=== PATIENT | female | born 1990 | race Caucasian/White ===

== ENCOUNTER 2016-12-15 14:19 | Emergency (ER) | payer OTHER ==
[2016-12-15 14:35] VITALS: BP 122/72
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
--- NOTE | 2016-12-15 15:23 | RAD ---
INDICATION: Chest pain COMPARISON: None TECHNIQUE: PA and lateral dual-energy views were obtained. FINDINGS: Bones/Soft Tissues: There are no acute bony findings. Cardiomediastinal: The cardiomediastinal silhouette is normal. Lungs: There are no infiltrates. Pleura: There are no pleural effusions. Other: None IMPRESSION: NORMAL CHEST
== END 2016-12-15 15:34 | disposition home or self-care (01) ==
LOC: UCEAST 14:19
DX: R07.89 Other chest pain (principal); F41.9 Anxiety disorder, unspecified; F12.90 Cannabis use, unspecified, uncomplicated; Z87.891 Personal history of nicotine dependence
CPT/HCPCS: 71020; 93005; 99212; G0463

== ENCOUNTER 2017-04-23 09:27 | Emergency (ER) | payer OTHER ==
[2017-04-23 09:55] VITALS: BP 109/69
--- NOTE | 2017-04-23 10:41 | UC ---
I, Alberto,Nena, scribed for Alina Ruano MD on 04/23/17 at 1029 . Abdominal Pain Female HPI - HPI Summary HPI Summary: This 27 y/o female presents to [facility] for intermittent RLQ abd pain since 4 days ago. Pain is described as aching. Full bladder and movement make the pain worse. Pain is relieved after urinary void but denies dysuria, hematuria. States feels different than previous UTIs. Pt denies vaginal discharge, itching odor. Positive nausea and mild constipation. Pt has small BM this am without change in discomfort. Pt denies diarrhea. No h./o similar pain. Pt has not taken analgesia, but does smokes THC daily with improvement of pain. Pt with h/ o STDs. Pt in monogamous relationship. No h/o similar, no h/o ovarian cyst. Pt ate a small breakfast this morning, but reports poor appetite. PMHx includes recurrent UTI with last bout 1 year ago. She reports that her control is currently off schedule due to missed two doses before placebo. New pack has been started about a week ago. She has been sexually active during 10 days of non-BC period. Pt is currently on control, zyrtec, and azelastine nasal spray. Pt is daily MJ user and daily drinker. Pt works as warehouse administrative assistant. Med list is reviewed and confirmed with pt. Vital signs reviewed. - History of Current Complaint Chief Complaint: UCAbdominalPain Stated Complaint: LOWER ABD PAIN Time Seen by Provider: 04/23/17 09:57 Hx Obtained From: Patient Hx Last Menstrual Period: 04/02/17 Onset/Duration: Lasting Days, Still Present Timing: Intermittent Episodes Lasting: Pain Intensity: 6 Pain Scale Used: 0-10 Numeric Location: Discrete At: RLQ Radiates: No Character: Aching Aggravating Factor(s): Movement, Other: - start voiding Alleviating Factor(s): Other: - voiding Associated Signs and Symptoms: Positive: Constipation, Nausea. Negative: Fever , Vaginal Bleeding, Vaginal Discharge, Vomiting Allergies/Adverse Reactions: Allergies Allergy/AdvReac Type Severity Reaction Status Date / Time No Known Allergies Allergy Verified 04/23/17 09:43 Home Medications: Home Medications Azelastine/Fluticasone TAMIA(NF [Dymista(NF)] 1 spray BOTH NARES 04/23/17 [History ] Cetirizine* [ZyrTEC 10 MG TAB*] 04/23/17 [History Confirmed 04/23/17] PMH/Surg Hx/FS Hx/Imm Hx Previously Healthy: Yes GI/ History: Other Other GI/ History: Recurrent UTI - Surgical History Surgical History: Yes Surgery Procedure, Year, and Place: wisdom teeth - Family History Known Family History: Positive: Cardiac Disease - grand parents x 2, Hypertension Negative: Diabetes - Social History Occupation: Employed Full-time Lives: With Family Alcohol Use: Daily Alcohol Amount: 2-3 drinks a day, beer or liquor Substance Use Type: Marijuana - daily Substance Use Comment - Amount & Last Used: frequently Smoking Status (MU): Former Smoker When Did the Patient Quit Smoking/Using Tobacco: 1 year ago Review of Systems Constitutional: Other - decreased appetite Skin: Negative Eyes: Negative ENT: Negative Respiratory: Negative Cardiovascular: Negative Gastrointestinal: Abdominal Pain, Other - nausea Genitourinary: Negative Motor: Negative Neurovascular: Negative Musculoskeletal: Negative Neurological: Negative Psychological: Negative All Other Systems Reviewed And Are Negative: Yes Physical Exam Triage Information Reviewed: Yes Appearance: Well-Appearing, No Pain Distress, Well-Nourished Vital Signs: Initial Vital Signs Temp 99.3 F 04/23/17 09:45 Pulse 68 04/23/17 09:45 Resp 18 04/23/17 09:45 BP 109/69 04/23/17 09:45 Pulse Ox 98 04/23/17 09:45 Vital Signs Reviewed: Yes Eye Exam: Normal ENT: Positive: Hearing grossly normal Neck exam: Normal Neck: Positive: Supple, Nontender, No Lymphadenopathy Respiratory Exam: Normal Respiratory: Positive: Chest non-tender, Normal breath sounds. Negative: Wheezing Cardiovascular Exam: Normal Cardiovascular: Positive: RRR, No Murmur Abdomen Description: Negative: Nontender - abd soft +BS + TTP RLQ McBurney's point No suprapubic pain Neg Rosving's no distension Bowel Sounds: Positive: Hypoactive Musculoskeletal Exam: Normal Neurological Exam: Normal Psychological Exam: Normal Skin Exam: Normal Abd Pain Female Course/Dx - Course Course Of Treatment: Pt with progressie RLQ x 4 days. Pt with increased pain with bladder distension. VSS. Pt with neg urinalysis, neg urine . Differential includes ovarian cyst (pain more superior than anticipated) contsipation (not releaved by BM this am, no sense of constipation, Appendicitis. I offered pt pelvic exam - declined at - aware will likely require at hospital. recommend transfer to ED for further eval with labs and imaging. Pt in agreement with plan. fiancee to drive. Spoke with Dr. Murillo - accepting in transfer - Differential Dx/Diagnosis Provider Diagnoses: RLQ pain - Physician Notification/Consults Discussed Care of Patient With: Oneil Murillo Time Discussed With Above Provider: 10:30 Instructed by Provider To: Transfer Discharge - Discharge Plan Condition: Stable Disposition: HOME Patient Education Materials: Abdominal Pain (ED) Referrals: Marie Garcia MD [Primary Care Provider] - Additional Instructions: - Go directly to the emergency department - they are expecting you - Do not eat or drink anything until you are seen and further evaluated - If your pain becomes severe or you have any other concerns, assembler for puller over hand and call 911 The documentation as recorded by the Alberto angeles Soohyun accurately reflects the service I personally performed and the decisions made by me, Alina Ruano MD.
== END 2017-04-23 10:40 | disposition home or self-care (01) ==
LOC: UCEAST 09:27
DX: R10.31 Right lower quadrant pain (principal); F12.10 Cannabis abuse, uncomplicated; Z87.891 Personal history of nicotine dependence
CPT/HCPCS: 81003; 84702; 99202; G0463

== ENCOUNTER 2017-12-18 16:46 | Emergency (ER) | payer BC, OTHER ==
[2017-12-18 16:56] VITALS: BP 115/81
--- NOTE | 2017-12-18 18:02 | UC ---
Throat Pain/Nasal Mandeep HPI - HPI Summary HPI Summary: Patient presents with complaints of throat pain, x 2 days. She states three co- workers have strep throat. She is scheduled to go on a business trip tomorrow and she is worried her throat pain will get worse. She is able to eat, drink, and handle her own secretions. She denies fever, chills, nausea, vomiting. - History of Current Complaint Hx Obtained From: Patient Hx Last Menstrual Period: 11/20/17 Onset/Duration: Gradual Onset, Lasting Days Severity: Mild Pain Intensity: 2 Cough: Nonproductive Associated Signs & Symptoms: Positive: Negative - Epiglottits Risk Factors Epiglottis Risk Factors: Negative <Luz Reynoso - Last Filed: 12/18/17 17:57> <Alina Ruano - Last Filed: 12/18/17 18:39> - History of Current Complaint Chief Complaint: UCGeneralIllness Stated Complaint: SORE THROAT Time Seen by Provider: 12/18/17 17:48 - Allergies/Home Medications Allergies/Adverse Reactions: Allergies Allergy/AdvReac Type Severity Reaction Status Date / Time No Known Allergies Allergy Verified 04/23/17 11:22 PMH/Surg Hx/FS Hx/Imm Hx Previously Healthy: Yes - Surgical History Surgical History: Yes Surgery Procedure, Year, and Place: wisdom teeth - Family History Known Family History: Positive: Cardiac Disease - grand parents x 2, Hypertension Negative: Diabetes - Social History Occupation: Employed Full-time Lives: Alone Alcohol Use: Daily Alcohol Amount: 2-3 drinks a day, beer or liquor Substance Use Type: Marijuana Substance Use Comment - Amount & Last Used: frequently Smoking Status (MU): Former Smoker When Did the Patient Quit Smoking/Using Tobacco: 1 year ago <Luz Reynoso - Last Filed: 12/18/17 17:57> Review of Systems Constitutional: Negative Skin: Negative Eyes: Negative ENT: Sore Throat Respiratory: Negative Cardiovascular: Negative Gastrointestinal: Negative Genitourinary: Negative Motor: Negative Neurovascular: Negative Musculoskeletal: Negative Neurological: Negative Psychological: Negative Is Patient Immunocompromised?: No All Other Systems Reviewed And Are Negative: Yes <Luz Reynoso - Last Filed: 12/18/17 17:57> Physical Exam Triage Information Reviewed: Yes Appearance: Well-Appearing Vital Signs: Initial Vital Signs Temp 98.9 F 12/18/17 16:52 Pulse 68 12/18/17 16:52 Resp 16 12/18/17 16:52 BP 115/81 12/18/17 16:52 Pulse Ox 100 12/18/17 16:52 Vital Signs Reviewed: Yes Eye Exam: Normal ENT: Positive: Pharyngeal erythema Neck exam: Normal Neck: Positive: 1 Respiratory Exam: Normal Cardiovascular Exam: Normal Skin Exam: Normal <Luz Reynoso - Last Filed: 12/18/17 17:57> Vital Signs: Initial Vital Signs Temp 98.9 F 12/18/17 16:52 Pulse 68 12/18/17 16:52 Resp 16 12/18/17 16:52 BP 115/81 12/18/17 16:52 Pulse Ox 100 12/18/17 16:52 <Alina Ruano - Last Filed: 12/18/17 18:39> Throat Pain/Nasal Course/Dx - Course Course Of Treatment: Patient presents with throat pain, and exposure to strep at work. She is scheduled to go away tomorrow for work trip and is worried she will get worse and wont have any medicine. She was told today that she does not have strep and she should not take the antibiotic at this time as it will not make her get better as sooner. She states she will not take the medication unless her symtpoms get significantly worse. - Differential Dx/Diagnosis Differential Diagnosis/HQI/PQRI: Pharyngitis Provider Diagnoses: pharyngitis <Luz Reynoso - Last Filed: 12/18/17 17:57> Discharge <Luz Reynoso - Last Filed: 12/18/17 17:57> <Alina Ruano - Last Filed: 12/18/17 18:39> - Discharge Plan Condition: Stable Disposition: HOME Prescriptions: Penicillin VK TAB* [Penicillin VK 250 mg Tab*] 500 mg PO QID #40 tab Patient Education Materials: Pharyngitis (ED) Referrals: Marie Garcia MD [Primary Care Provider] - Additional Instructions: As discussed with the patient she was negative for strep throat at this time. However she states three of her co-workers have strep and she is scheduled to go on a business trip tomorrow and is worried she is going to become more ill. I have sent RX for her to take with her, but she agrees to wait 48 hours and if she gets better she will not need to take this medication. Attestation Statement User Type: Provider - I was available for consult. This patient was seen by the JEFFERY. The patient was not presented to, seen by, or examined by me. -Isabelle <Alina Ruano - Last Filed: 12/18/17 18:39>
== END 2017-12-18 18:10 | disposition home or self-care (01) ==
LOC: UCEAST 16:46
DX: J02.9 Acute pharyngitis, unspecified (principal); F12.90 Cannabis use, unspecified, uncomplicated; Z87.891 Personal history of nicotine dependence
CPT/HCPCS: 87651; 99212; G0463

== ENCOUNTER 2018-05-17 07:53 | Emergency (ER) | payer BC ==
[2018-05-17 08:19] VITALS: BP 118/68
--- NOTE | 2018-05-17 10:16 | UC ---
Tami Vigil Gabriel, scribed for Boy Hall MD on 05/17/18 at 0837 . General HPI - HPI Summary HPI Summary: This patient is a 28 year old F presenting to [facility] [place] with a chief complaint of neck/lower back pain. On 05-12-18 the patient began having nausea and a headache. She describes the headache as a dull wide spread headache with occasional sharp shooting pain that will last a few seconds. Her back pain has interrupted her sleep, she has taken NSAIDs with no relief. The patient rates the pain 7/10 in severity. Patient reports low grade fever, intermittent pain in LLQ, and blood with bowel movements. Pt gets sinus infections often and has some baseline sinus tenderness. She has multiple environmental allergies. Patient denies rhinorrhea, LE edema, cough, chest congestion, and sore throat. Pt only has 1 BM per week and has hx of constipation. She states her constipation is worse than usual and she has been having some blood with wiping mostly. There is no blood on the stool but it is in the toilet. BM's are painful. Last night the pt had a short episode of chills and myalgia. Pt hikes often but denies rash and tick exposure. The pt was encouraged to go to the ED for a proper work up. - History of Current Complaint Chief Complaint: UCGeneralIllness Stated Complaint: HEADACHE BACK PAIN NAUSEA RECTAL BLEEDING Time Seen by Provider: 05/17/18 08:01 Hx Obtained From: Patient Hx Last Menstrual Period: 05/08/18 Onset/Duration: Lasting Days, Still Present Timing: Intermittent Episodes Lasting: Onset Severity: Moderate Current Severity: Moderate Pain Intensity: 7 Associated Signs & Symptoms: Positive: Other - ABD pain, blood with BM, GARCIA, neck pain, back pain, - Allergy/Home Medications Allergies/Adverse Reactions: Allergies Allergy/AdvReac Type Severity Reaction Status Date / Time No Known Allergies Allergy Verified 05/17/18 08:04 Home Medications: Home Medications Acetaminophen [Acetaminophen Extra Strength] 1,000 mg PO ONCE 05/17/18 [History Confirmed 05/17/18] Fexofenadine/Pseudoephedrine [Sunshine-D 24 Hour Tablet] 1 each PO DAILY [History Confirmed 05/17/18] Multivitamin [Multivitamins] 1 cap PO DAILY 05/17/18 [History Confirmed 05/17/18 ] PMH/Surg Hx/FS Hx/Imm Hx - Additional Past Medical History Additional PMH: scoliosis Respiratory History: Other Other Respiratory History: seasonal allergies GI/ History: Other Other GI/ History: PCOS Other History Of: Negative For: Anticoagulant Therapy - Surgical History Surgical History: Yes Surgery Procedure, Year, and Place: wisdom teeth - Family History Known Family History: Positive: Cardiac Disease - grand parents x 2, Hypertension Negative: Diabetes - Social History Lives: With Family Alcohol Use: Daily Alcohol Amount: 2-3 drinks a day, beer Substance Use Type: Marijuana Substance Use Comment - Amount & Last Used: daily Smoking Status (MU): Former Smoker When Did the Patient Quit Smoking/Using Tobacco: 1 year ago Review of Systems Constitutional: Fever, Chills ENT: Sinus Pain/Tenderness Gastrointestinal: Abdominal Pain, Nausea, Other - blood with BM and pain with BM Musculoskeletal: Myalgia, Other: - back pain Neurological: Headache All Other Systems Reviewed And Are Negative: Yes Physical Exam - Summary Physical Exam Summary: General: well-appearing, no pain distress Skin: warm, color reflects adequate perfusion, dry Head: normal Eyes: EOMI, GERARDO ENT: normal Neck: supple, nontender Respiratory: CTA, breath sounds present Cardiovascular: RRR Abdomen: soft, nontender Bowel: present Musculoskeletal: normal, strength/ROM intact Neurological: sensory/motor intact, A&O x3 Psychological: affect/mood appropriate Triage Information Reviewed: Yes Vital Signs: Initial Vital Signs Temp 98.9 F 05/17/18 08:07 Pulse 83 05/17/18 08:07 Resp 16 05/17/18 08:07 BP 118/68 05/17/18 08:07 Pulse Ox 100 05/17/18 08:07 Vital Signs Reviewed: Yes Course/Dx - Course Course Of Treatment: Medications reviewed. Allergies noted. DISCUSSED NEED FOR LABS AND OTHER EVALUATION WHICH IS NOT AVAILABLE HERE IN CLINIC AND RECOMMENDED EVALUATION IN ED NOW. - Differential Dx - Multi-Symptom Provider Diagnoses: HEADACHE. BACK PAIN. FEVER. BLOOD IN STOOL Discharge - Sign-Out/Discharge Documenting (check all that apply): Discharge/Admit/Transfer - Discharge Plan Condition: Stable Disposition: HOME Patient Education Materials: Gastrointestinal Bleeding (ED), Fever in Adults ( ED), Acute Headache (ED), Back Pain (ED) Referrals: Marie Garcia MD [Primary Care Provider] - Additional Instructions: GO DIRECTLY TO THE EMERGENCY DEPARTMENT FOR FURTHER EVALUATION OF YOUR HEADACHE , FEVER, NECK AND BACK PAIN, ABDOMINAL PAIN, AND BLOOD IN YOUR STOOL. - Billing Disposition and Condition Condition: STABLE Disposition: Home The documentation as recorded by the Tami angeles Gabriel accurately reflects the service I personally performed and the decisions made by me, Boy Hall MD.
== END 2018-05-17 09:02 | disposition home or self-care (01) ==
LOC: UCEAST 07:53
DX: R51 Headache (principal); M54.5 Low back pain; R50.9 Fever, unspecified; K92.1 Melena
CPT/HCPCS: 99212; G0463

== ENCOUNTER 2018-05-18 15:43 | Emergency (ER) | payer BC ==
[2018-05-18] MEDS ORDERED: Ketorolac INJ* 30 MG/ML 1 ML VIAL IV ONE (16:09)
[2018-05-18] MEDS ORDERED: Ondansetron ODT TAB* 4 MG PO ONE (16:09)
[2018-05-18] MEDS ORDERED: NS 0.9% 1000 ML* 2,000 ML IV ONE (16:09)
[2018-05-18 16:46] LABS: ABS Basophils 0 10^3/ul (0-0.2); ABS Eosinophils 0 10^3/ul (0-0.6); ABS Lymphocytes 1.1 10^3/ul (1.0-4.8); ABS Monocytes 0.6 10^3/ul (0-0.8); ABS Neutrophils 1.9 10^3/ul (1.5-7.7); ABS Nucleated RBC 0 10^3/ul; Eosinophil % 0.5 % (0-6); Hematocrit 33 % (35-47); Hemoglobin 11.4 g/dl (12.0-16.0); Lymphocyte % 29.5 % (25-47); Mean Corpuscular HGB Conc 35 g/dl (31-36); Mean Corpuscular Hemoglobin 31 pg (27-31); Mean Corpuscular Volume 90 fL (80-97); Mean Platelet Volume 7.3 um3 (7.4-10.4); Nucleated Red Blood Cells % 0.2; Platelet Count 140 10^3/ul (150-450); Red Blood Count 3.65 10^6/ul (4.00-5.40); Red Cell Distribution Width 13 % (10.5-15); White Blood Count 3.6 10^3/ul (3.5-10.8)
[2018-05-18 16:55] LABS: INR 0.9 (0.77-1.02)
--- NOTE | 2018-05-18 16:59 | RAD ---
Indication: Headaches. CT of the brain was performed without IV contrast. Ventricular structures are midline. No midline shift is noted. The extra-axial spaces are unremarkable. There is no evidence of intracranial mass or hemorrhage. No other high or low density lesions are identified. Mastoid air cells and paranasal sinuses are unremarkable. IMPRESSION: No intracranial mass or hemorrhage is noted.
--- NOTE | 2018-05-18 17:02 | RAD ---
Indication: Headaches. Neck pain. CT of the cervical spine was obtained in the axial plane. Sagittal and coronal reconstructed images were obtained. The skull base demonstrates mastoid air cells to be well aerated. No fracture is noted. The vertebral bodies appear normal in height. There is straightening of the normal lordosis. Disc spaces show no evidence of any disc protrusion. No fracture is identified. The lung apices are unremarkable. IMPRESSION: No fracture of the cervical spine is noted. Straightening of the normal lordosis.
--- NOTE | 2018-05-18 17:08 | RAD ---
Indication: Abdominal pain. Flat and upright views of the abdomen demonstrates no free air. No dilated loops of bowel. Present. No organomegaly is noted. Bowel gas pattern is otherwise unremarkable. IMPRESSION: No free air or obstruction is noted.
[2018-05-18 17:11] LABS: EGFR Non-African American 96.7 (>60)
[2018-05-18 17:29] LABS: Urine Appearance Clear; Urine Blood Negative (Negative); Urine Color Colorless; Urine Ketones Negative (Negative); Urine Protein Negative (Negative); Urine Specific Gravity 1.001 (1.010-1.030); Urine Urobilinogen Negative (Negative)
[2018-05-18] MEDS ORDERED: Ibuprofen TAB* 600 MG PO ONE (17:52)
--- NOTE | 2018-05-18 18:21 | ED ---
Mando Vigil Tariq, scribed for Boy Hall MD on 05/18/18 at 1622 . Complex/Multi-Sys Presentation - HPI Summary HPI Summary: A 28 y/o female presents to ED c/o headache, neck pain/stiffness, back pain and rectal bleeding. Currently, she had no abdominal pain. According to the pt, during active movement such as bending over and standing, she gets lightheaded and has sudden headaches. The throbbing headaches (base of skull and sinus pressure in front/behind eyes) and stiff neck pain (7-8/10) started approximately 1 week ago, rectal bleeding started 2-3 weeks ago. She stated that she constantly feels constipated and she has painful stools. She characterizes it as, "feels like it is cutting my insides". As for the back pain , it is in the middle and radiates all the way up her spine to her neck and base of skull. She also notes she has diffuse abdominal pain/cramps especially when she is hungry. She describes the intermittent abdominal pain as, "much more than hunger pain, it is much more intense", however it is alleviated if she eats something. Pt denies sore throat, cough and chest congestion, however has had intermittent fever and chills lately and feels slightly dehydrated. Movement of head aggravates the neck pain. Pt took Tylenol, Aleve, Sudafed and Acetaminophen over the course of a week, however it does not alleviate pain, but slightly the headaches. - History Of Current Complaint Chief Complaint: EDGeneral Time Seen by Provider: 05/18/18 15:49 Hx Obtained From: Patient Onset/Duration: Sudden Onset, Lasting Weeks, Still Present Timing: Constant - Back pain, neck pain, Intermittent, Lasting: - abdominal pain Location: Radiates To: - Diffuse abdominal pain, back pain, neck pain Character: Throbbing - Headache Aggravating Factor(s): Movement Alleviating Factor(s): Eating helps with abdominal pain Associated Signs And Symptoms: Positive: Headache, Abdominal Pain, Back Pain, Melena, Fever - Allergies/Home Medications Allergies/Adverse Reactions: Allergies Allergy/AdvReac Type Severity Reaction Status Date / Time No Known Allergies Allergy Verified 05/18/18 15:48 PMH/Surg Hx/FS Hx/Imm Hx Endocrine/Hematology History: Denies: Hx Anticoagulant Therapy, Hx Diabetes, Hx Thyroid Disease Cardiovascular History: Denies: Hx Hypertension Respiratory History: Denies: Hx Asthma, Hx Chronic Obstructive Pulmonary Disease (COPD) GI History: Denies: Hx Ulcer History: Denies: Hx Renal Disease - Surgical History Surgery Procedure, Year, and Place: wisdom teeth Infectious Disease History: No Infectious Disease History: Denies: Hx Hepatitis, Hx Human Immunodeficiency Virus (HIV), History Other Infectious Disease, Traveled Outside the [place] in Last 30 Days - Family History Known Family History: Positive: Cardiac Disease - grand parents x 2, Hypertension Negative: Diabetes - Social History Alcohol Use: Daily Alcohol Amount: 2-3 drinks a day, beer Substance Use Type: Reports: Marijuana Substance Use Comment - Amount & Last Used: daily Smoking Status (MU): Former Smoker Review of Systems Positive: Fever - Intermittent Negative: Sore Throat Positive: Other - NEGATIVE: Congestion. Negative: Cough Positive: Abdominal Pain - Intermittent, Other - POSITIVE: Rectal bleeding, constipation Positive: Other - POSITIVE: Neck pain/stiffness, back pain Neurological: Other - POSITIVE: Lightheadedness Positive: Headache - Throbbing All Other Systems Reviewed And Are Negative: Yes Physical Exam - Summary Physical Exam Summary: General:well-appearing, no pain distress Skin:warm, color reflects adequate perfusion, dry Head:normal Eyes:EOMI, GERARDO ENT:normal Neck:supple, nontender Respiratory:CTA, breath sounds present Cardiovascular:RRR Abdomen:soft, nontender Bowel:present Musculoskeletal:Mild tenderness of midline neck Neurological:sensory/motor intact, A&O x3 Psychological:affect/mood appropriate GCS: 15 Triage Information Reviewed: Yes Vital Signs On Initial Exam: Initial Vitals Temp Pulse Resp BP Pulse Ox 99.1 F 82 14 116/77 98 05/18/18 15:43 05/18/18 15:43 05/18/18 15:43 05/18/18 15:43 05/18/18 15:43 Vital Signs Reviewed: Yes Diagnostics - Vital Signs Vital Signs Temp Pulse Resp BP Pulse Ox 05/18/18 15:43 99.1 F 82 14 116/77 98 - Laboratory Lab Results: Lab Results 05/18/18 05/18/18 05/18/18 Range/Units 16:35 16:35 16:35 WBC 3.6 (3.5-10.8) 10^3/ul RBC 3.65 L (4.00-5.40) 10^6/ul Hgb 11.4 L (12.0-16.0) g/dl Hct 33 L (35-47) % MCV 90 (80-97) fL MCH 31 (27-31) pg MCHC 35 (31-36) g/dl RDW 13 (10.5-15) % Plt Count 140 L (150-450) 10^3/ul MPV 7.3 L (7.4-10.4) um3 Neut % (Auto) 52.8 (38-83) % Lymph % (Auto) 29.5 (25-47) % [place] % (Auto) 16.6 H (0-7) % Eos % (Auto) 0.5 (0-6) % Baso % (Auto) 0.6 (0-2) % Absolute Neuts (auto) 1.9 (1.5-7.7) 10^3/ul Absolute Lymphs (auto) 1.1 (1.0-4.8) 10^3/ul Absolute Monos (auto) 0.6 (0-0.8) 10^3/ul Absolute Eos (auto) 0 (0-0.6) 10^3/ul Absolute Basos (auto) 0 (0-0.2) 10^3/ul Absolute Nucleated RBC 0 10^3/ul Nucleated RBC % 0.2 INR (Anticoag Therapy) 0.90 (0.77-1.02) APTT 26.0 (26.0-36.3) seconds Sodium 135 (135-145) mmol/L Potassium 4.3 (3.5-5.0) mmol/L Chloride 103 (101-111) mmol/L Carbon Dioxide 25 (22-32) mmol/L Anion Gap 7 (2-11) mmol/L BUN 7 (6-24) mg/dL Creatinine 0.71 (0.51-0.95) mg/dL Est GFR ( Amer) 117.0 (>60) Est GFR (Non-Af Amer) 96.7 (>60) BUN/Creatinine Ratio 9.9 (8-20) Glucose 84 (70-100) mg/dL Lactic Acid (0.5-2.0) mmol/L Calcium 9.7 (8.6-10.3) mg/dL Total Bilirubin 0.40 (0.2-1.0) mg/dL AST 32 (13-39) U/L ALT 39 (7-52) U/L Alkaline Phosphatase 50 (34-104) U/L C-Reactive Protein 17.88 H (<8.01) mg/L Total Protein 7.0 (6.4-8.9) g/dL Albumin 3.9 (3.2-5.2) g/dL Globulin 3.1 (2-4) g/dL Albumin/Globulin Ratio 1.3 (1-3) Lipase 24 (11.0-82.0) U/L Beta HCG, Quant < 0.60 mIU/mL Urine Color Urine Appearance Urine pH (5-9) Ur Specific [place] (1.010-1.030) Urine Protein (Negative) Urine Ketones (Negative) Urine Blood (Negative) Urine Nitrate (Negative) Urine Bilirubin (Negative) Urine Urobilinogen (Negative) Ur Leukocyte Esterase (Negative) Urine Glucose (Negative) 05/18/18 05/18/18 Range/Units 16:35 17:13 WBC (3.5-10.8) 10^3/ul RBC (4.00-5.40) 10^6/ul Hgb (12.0-16.0) g/dl Hct (35-47) % MCV (80-97) fL MCH (27-31) pg MCHC (31-36) g/dl RDW (10.5-15) % Plt Count (150-450) 10^3/ul MPV (7.4-10.4) um3 Neut % (Auto) (38-83) % Lymph % (Auto) (25-47) % [place] % (Auto) (0-7) % Eos % (Auto) (0-6) % Baso % (Auto) (0-2) % Absolute Neuts (auto) (1.5-7.7) 10^3/ul Absolute Lymphs (auto) (1.0-4.8) 10^3/ul Absolute Monos (auto) (0-0.8) 10^3/ul Absolute Eos (auto) (0-0.6) 10^3/ul Absolute Basos (auto) (0-0.2) 10^3/ul Absolute Nucleated RBC 10^3/ul Nucleated RBC % INR (Anticoag Therapy) (0.77-1.02) APTT (26.0-36.3) seconds Sodium (135-145) mmol/L Potassium (3.5-5.0) mmol/L Chloride (101-111) mmol/L Carbon Dioxide (22-32) mmol/L Anion Gap (2-11) mmol/L BUN (6-24) mg/dL Creatinine (0.51-0.95) mg/dL Est GFR ( Amer) (>60) Est GFR (Non-Af Amer) (>60) BUN/Creatinine Ratio (8-20) Glucose (70-100) mg/dL Lactic Acid 0.5 (0.5-2.0) mmol/L Calcium (8.6-10.3) mg/dL Total Bilirubin (0.2-1.0) mg/dL AST (13-39) U/L ALT (7-52) U/L Alkaline Phosphatase (34-104) U/L C-Reactive Protein (<8.01) mg/L Total Protein (6.4-8.9) g/dL Albumin (3.2-5.2) g/dL Globulin (2-4) g/dL Albumin/Globulin Ratio (1-3) Lipase (11.0-82.0) U/L Beta HCG, Quant mIU/mL Urine Color Colorless Urine Appearance Clear Urine pH 7.0 (5-9) Ur Specific [place] 1.001 L (1.010-1.030) Urine Protein Negative (Negative) Urine Ketones Negative (Negative) Urine Blood Negative (Negative) Urine Nitrate Negative (Negative) Urine Bilirubin Negative (Negative) Urine Urobilinogen Negative (Negative) Ur Leukocyte Esterase Negative (Negative) Urine Glucose Negative (Negative) Result Diagrams: 05/18/18 16:35 05/18/18 16:35 Lab Statement: Any lab studies that have been ordered have been reviewed, and results considered in the medical decision making process. - Radiology ABDOMEN XR Radiology Interpretation Completed By: Radiologist - No free air or obstruction is noted. ED PHYSICIAN REVIEWED THIS RADIOLOGY REPORT. - CT CERVICAL SPINE CT CT Interpretation Completed By: Radiologist - No fracture of the cervical spine is noted. Straightening of the normal lordosis. ED PHYSICIAN REVIEWED THIS RADIOLOGY REPORT. BRAIN CT CT Interpretation Completed By: Radiologist - No intracranial mass or hemorrhage is noted. ED PHYSICIAN REVIEWED THIS RADIOLOGY REPORT. Re-Evaluation - Re-Evaluation First Eval Re-Evaluation Time: 17:40 Comment: Dicussed labs. Complex Multi-Symp Course/Dx Course Of Treatment: DISCUSSED RESULTS WITH THE PATIENT. NECK HAS FROM. WBC IS NORMAL. NO FEVER IN ED. AT THIS TIME, DOES NOT HAVE MENIGITIS. THIS AND THE SX OF MENINGITIS WAS DISCUSSED WITH THE PATIENT. NO ABD PAIN. A FEMALE PROVIDER UNDERTOOK A RECTAL EXAM; SHE DID NOT SEE AN EXTERNAL HEMORRHOID OR FISSURE OR ACTIVE BLEEDING. WE DISCUSSED AVOIDING CONSTIPATION WITH AMPLE HYDRATION. WE ALSO DISCUSSED RESTURNING TO THE ED WITH ANY WORSENING OF SX. F/U PMD; RETURN TO THE ED IF WORSE. - Diagnoses Provider Diagnoses: Headache, Neck pain, Rectal bleeding, Anal pain Discharge - Sign-Out/Discharge Documenting (check all that apply): Discharge/Admit/Transfer - Discharge Plan Condition: Stable Disposition: HOME Patient Education Materials: Rectal Bleeding (ED), Acute Headache (ED), Neck Pain (ED) Referrals: Marie Garcia MD [Primary Care Provider] - Additional Instructions: FOLLOW UP WITH YOUR DOCTOR. TAKE IBUPROFEN AND/OR ACETAMINOPHEN DIRECTED NEEDED FOR YOUR NECK PAIN AND HEADACHE. KEEP YOUR STOOLS SOFT BY DRINKING PLENTY OF WATER. YOU CAN USE OVER THE COUNTER TOPICALS SUCH PREPARATION H IF NEEDED IF HELPFUL. GET RECHECKED FOR ANY WORSENING OF YOUR CONDITION; PAIN, FEVER, SIGNS OF MENINGITIS, ABDOMINAL PAIN, FURTHER BLEEDING, YOU FEEL LIGHTHEADED OR QUESTIONS OR CONCERNS. - Billing Disposition and Condition Condition: STABLE Disposition: Home The documentation as recorded by the Mando angeles Tariq accurately reflects the service I personally performed and the decisions made by me, Boy Hall MD.
[2018-05-18 18:44] VITALS: BP 111/83
== END 2018-05-18 18:42 | disposition home or self-care (01) ==
LOC: ED 15:43
DX: R51 Headache (principal); M54.2 Cervicalgia; K62.5 Hemorrhage of anus and rectum; K62.89 Other specified diseases of anus and rectum; Z87.891 Personal history of nicotine dependence
CPT/HCPCS: 36415; 70450; 72125; 74019; 80053; 81003; 83605; 83690; 84702; 85025; 85610; 85730; 86140; 96360; 96374; 99282; A9270-GY; J1885

== ENCOUNTER 2018-11-15 07:50 | Emergency (ER) | payer BC, OTHER ==
[2018-11-15 08:02] VITALS: BP 116/67
--- NOTE | 2018-11-15 10:28 | UC ---
FLU HPI - HPI Summary HPI Summary: ONSET LAST NIGHT OF BODY ACHES, HEADACHE, SORE THROAT, PAIN WITH SWALLOWING. FEVER 100.4. NO COUGH OR CONGESTION. - History of Current Complaint Chief Complaint: UCGeneralIllness Stated Complaint: FLU LIKE SYMPTOMS Time Seen by Provider: 11/15/18 07:51 Hx Obtained From: Patient Hx Last Menstrual Period: 10/22/18 Onset/Duration: Gradual Onset, Lasting Hours, Still Present Severity Currently: Moderate Severity Initially: Moderate Pain Intensity: 2 Pain Scale Used: 0-10 Numeric Associated Signs & Symptoms: Positive: Fever, Myalgia, Sore Throat, Headache. Negative: Cough - Allergy/Home Medications Allergies/Adverse Reactions: Allergies Allergy/AdvReac Type Severity Reaction Status Date / Time environmenta Allergy Eyes Uncoded 11/15/18 08:02 Itchy/Swollen/Red/Watery Home Medications: Home Medications Naproxen Sodium [Aleve] 440 mg PO ONCE PRN 11/15/18 [History Confirmed 11/15/18] Pseudoephedrine HCl [Sudafed] 30 mg PO ONCE PRN 11/15/18 [History Confirmed ] PMH/Surg Hx/FS Hx/Imm Hx Previously Healthy: Yes Other History Of: Negative For: Anticoagulant Therapy - Surgical History Surgical History: Yes Surgery Procedure, Year, and Place: wisdom teeth - Family History Known Family History: Positive: Cardiac Disease - grand parents x 2, Hypertension Negative: Diabetes - Social History Alcohol Use: Daily Alcohol Amount: 2-3 drinks a day, beer Substance Use Type: Marijuana Substance Use Comment - Amount & Last Used: occasionally Smoking Status (MU): Former Smoker Have You Smoked in the Last Year: No When Did the Patient Quit Smoking/Using Tobacco: a year ago quit Review of Systems All Other Systems Reviewed And Are Negative: Yes Constitutional: Positive: Fever, Fatigue ENT: Positive: Sore Throat Respiratory: Positive: Negative Cardiovascular: Positive: Negative Gastrointestinal: Positive: Negative Musculoskeletal: Positive: Myalgia Neurological: Positive: Headache Physical Exam Triage Information Reviewed: Yes Appearance: Well-Appearing, No Pain Distress, Well-Nourished Vital Signs: Initial Vital Signs Temp 98.7 F 11/15/18 07:56 Pulse 89 11/15/18 07:56 Resp 18 11/15/18 07:56 BP 116/67 11/15/18 07:56 Pulse Ox 99 11/15/18 07:56 Laboratory Tests 11/15/18 11/15/18 08:11 08:13 Influenza A (Rapid) Negative Influenza B (Rapid) Negative Group A Strep Rapid Negative Vital Signs Reviewed: Yes Eyes: Positive: Conjunctiva Clear ENT: Positive: Hearing grossly normal, Pharynx normal, TMs normal Neck: Positive: Supple, Nontender, No Lymphadenopathy Respiratory Exam: Normal Cardiovascular Exam: Normal Abdomen Description: Positive: Soft Musculoskeletal: Positive: No Edema Neurological: Positive: Alert Psychological: Positive: Age Appropriate Behavior Skin: Negative: Rashes Flu Course/Dx - Differential Dx/Diagnosis Provider Diagnosis: Viral syndrome Discharge - Discharge Plan Condition: Stable Disposition: HOME Patient Education Materials: Viral Syndrome (ED) Referrals: Marie Garcia MD [Primary Care Provider] - If Needed Additional Instructions: FLU AND STREP TESTS BOTH NEGATIVE. YOUR SYMPTOMS ARE LIKELY VIRALLY MEDIATED AND SHOULD RESOLVE ON THEIR OWN WITH TIME. NO INDICATION FOR ANTIBIOTICS AT PRESENT. REST, HYDRATE, OTC MEDS NEEDED. SEEK FOLLOW-UP IF YOU ARE NOT IMPROVING OVER THE NEXT 1-2 WEEKS. - Billing Disposition and Condition Condition: STABLE Disposition: Home
== END 2018-11-15 09:03 | disposition home or self-care (01) ==
LOC: UCEAST 07:50
DX: B34.9 Viral infection, unspecified (principal); Z87.891 Personal history of nicotine dependence
CPT/HCPCS: 87651; 99211; G0463

== ENCOUNTER 2019-11-04 12:34 | Inpatient (IN) | payer BC, OTHER ==
[2019-11-04] MEDS ORDERED: Buffered Lidocaine 1% SYRIN* 1 ML/SYRINGE INTRADERM ONE (13:00)
[2019-11-04] MEDS ORDERED: Lactated Ringers 1000 ML Bag* 1,000 ML IV ONE (13:00)
[2019-11-04] MEDS ORDERED: Lactated Ringers 1000 ML Bag* 1,000 ML IV SCH ×2 (13:00→18:00)
--- NOTE | 2019-11-04 13:13 | HP ---
General Information - Reason for Visit 29yo, , IUP@40+5 here in active labor - General Information Maternal Age: 29 Grav: 1 Para: 0 SAB: 0 IEA: 0 Estimated Due Date: 10/30/19 Determined By: LMP Maternal Blood Type and Rh: O Positive - Results this Serology/RPR Result: Non-Reactive Rubella Result: Immune HBsAg Result: Negative HIV Result: Negative GBS Culture Result: Positive Past Medical History Past Medical History Comment: Anxiety - panic attacks Scoliosis Allergies - environmental Joint pain Hx Depression Past Surgical History Comment: [place] tooth extraction (2006) Family History Comment: PGM: Ovarian cancer PGF: Dementia MGM: Breast cancer, [place] MGF: heart disease - Antepartal Records Antepartal Records: Reviewed, Complicated by: - GBS+, anemia Review of Systems Constitutional: Uncomfortable CV Complaint: No Respiratory: Shortness of Breath: No Gastrointestinal: No Nausea/Vomiting, Normal Bowel Movement Genitourinary: Bleeding - +bloody show, No Dysuria, No Leaking Fluid Musculoskeletal: Back Pain, Contractions Neurological: No Headache, No Visual Changes Movement: Normal Exam Allergies/Adverse Reactions: Allergies environmenta Allergy (Uncoded 11/15/18 08:02) Eyes Itchy/Swollen/Red/Watery 122/74, HR 58, O2 98% - Measurements Pre- Weight: 130 lb - Exam Breast: Breast Exam Deferred CVA: No CVA Tenderness Extremities: No Edema Heart: Normal Rhythm/Heart Sounds HEENT: No Significant Findings Lungs: Clear Bilaterally Rectal: Rectal Exam Deferred - Abdominal Exam Abdomen Exam: Non-Tender Targeted Exam Findings Estimated Weight: 8lb Cervical Exam: 4cm Effacement: 80% Station: -1 Presenting Part: Vertex Membrane Status: Intact Bleeding/Discharge: Bloody Show EFM Findings - External Monitor Findings Baseline Heart Rate: 130 External Monitor Findings: Accelerations Present, No Pattern of Variable or Late Decelerations, Variability Moderate, Baseline Stable External Monitor Findings Comment: No evidence of metabolic acidemia Contractions: Regular, 45-90 Seconds - Coupling, 3mins Assessment/Plan - Assessment 29yo, , IUP@40+5 here in active labor GBS+, O+, RI Active labor No evidence of metabolic acidemia Regular contractions - Obstetrical Risk Factors Obstetrical Risk Factors: GBS Positive - Plan Plan: Admit - Anticipate Vaginal Delivery Plan Comment: Admit to L&D Start GBS chemoprophylaxis VE prn IV pain meds, nitrous oxide prn Anticipate progression to
[2019-11-04] MEDS ORDERED: Penicillin G Potassium IV* 5,000,000 UNITS in NS 0.9% 100 ML* 100 ML IVPB ONE (13:30)
[2019-11-04 13:50] LABS: ABS Basophils 0.1 10^3/ul (0-0.2); ABS Eosinophils 0.1 10^3/ul (0-0.6); ABS Lymphocytes 1.3 10^3/ul (1.0-4.8); ABS Monocytes 0.7 10^3/ul (0-0.8); ABS Neutrophils 8.9 10^3/ul (1.5-7.7); Eosinophil % 0.6 %; Hematocrit 32 % (35-47); Hemoglobin 10.9 g/dL (12.0-16.0); Lymphocyte % 11.9 %; Mean Corpuscular HGB Conc 34 g/dL (31-36); Mean Corpuscular Hemoglobin 32 pg (27-31); Mean Corpuscular Volume 94 fL (80-97); Mean Platelet Volume 8.9 fL (7.4-10.4); Platelet Count 148 10^3/uL (150-450); Red Cell Distribution Width 14 % (10-15); White Blood Count 11.1 10^3/uL (3.5-10.8)
[2019-11-04 15:01] LABS: Urine Benzodiazepine Screen None Detected (None Detect); Urine Opiates Screen None Detected (None Detect)
[2019-11-04] MEDS ORDERED: Witch Hazel PAD* JAR TOPICAL PRN (17:33)
[2019-11-04] MEDS ORDERED: Dibucaine 1% 28.35 GM TUBE PR PRN (17:33)
[2019-11-04] MEDS ORDERED: Glycerin ADULT SUPP PR PRN (17:33)
[2019-11-04] MEDS ORDERED: Penicillin G Potassium IV* 3,000,000 UNITS in NS 0.9% 100 ML* 100 ML IVPB SCH (18:00)
--- NOTE | 2019-11-04 19:34 | PROCNOTE ---
[facility] OB: Delivery Note - Delivery A Date of : 11/04/19 Time of : 16:36 [place] Sex: Female Weight at : 7 lb 5 oz Score 1 Minute: 9 Score 5 Minutes: 9 Gestational Age in Weeks and Days at Delivery: 40 Weeks and 5 Days Delivery Method: Spontaneous Vaginal Labor: Spontaneous Did Patient attempt ?: N/A, No Previous Amniotic Fluid: Clear Estimated Blood Loss: 300 Anesthesia/Analgesia: None Delivered By: Jordyn Hightower - Nursery Level of Nursery: Regular/Bedside - Perineum Perineal Injury: Perineal Laceration, 2nd Degree Perineal Injury Comment: right labial abrasion Perineal Repair: By Delivering Practioner - Events Delivery Events of Note: Partial Course of Antibiotics Delivery Events of Note Comment: nuchal hand at delivery, treated with pcn x 1 dose in labor. - Additional Delivery Notes Additional Delivery Notes: Delivered left occipital-anterior ([place]), nuchal arm noted. Body delivered without difficulty. Baby placed on mothers abdomen. Cord clamped and cut by myself after pulsations ceased. Placenta delivered spontaneously via alicia, appears intact, 3vc. Perineum and vagina inspected. A right labial abrasion noted - hemostatic and not repaired. A second degree perineal laceration was also noted. Laceration repaired in the usual fashion, anatomy restored, hemostatic. EBL 300mL. Mom and baby stable at time of note. Baby attempting to breastfeed.
[2019-11-04] MEDS: Ibuprofen TAB* 600 MG PO SCH (19:45)
[2019-11-04] MEDS: Docusate CAP* 100 MG PO SCH (19:45)
[2019-11-04] MEDS ORDERED: Simethicone TAB* 80 MG TAB.CHEW PO SCH (21:00)
[2019-11-04] MEDS: Acetaminophen TAB* 325 MG PO PRN (21:03)
[2019-11-05] MEDS: Ibuprofen TAB* 600 MG PO SCH ×4 (03:18→23:48)
[2019-11-05 06:00] LABS: ABS Eosinophils 0.1 10^3/ul (0-0.6); ABS Lymphocytes 1.8 10^3/ul (1.0-4.8); ABS Monocytes 1.1 10^3/ul (0-0.8); ABS Neutrophils 12.4 10^3/ul (1.5-7.7); Eosinophil % 0.4 %; Hematocrit 28 % (35-47); Hemoglobin 9.6 g/dL (12.0-16.0); Lymphocyte % 11.7 %; Mean Corpuscular HGB Conc 34 g/dL (31-36); Mean Corpuscular Hemoglobin 32 pg (27-31); Mean Corpuscular Volume 95 fL (80-97); Mean Platelet Volume 8.2 fL (7.4-10.4); Nucleated Red Blood Cells % 0.1; Platelet Count 138 10^3/uL (150-450); Red Blood Count 2.96 10^6 /uL (3.70-4.87); Red Cell Distribution Width 14 % (10-15); White Blood Count 15.4 10^3/uL (3.5-10.8)
[2019-11-05] MEDS: Docusate CAP* 100 MG PO SCH ×3 (08:08→20:05)
[2019-11-05] MEDS: Acetaminophen TAB* 325 MG PO PRN ×2 (10:42→18:09)
[2019-11-05] MEDS: Ferrous Gluconate TAB* 324 MG TAB PO SCH ×2 (14:16→20:05)
[2019-11-06] MEDS: Ibuprofen TAB* 600 MG PO SCH (07:41)
[2019-11-06] MEDS: Ferrous Gluconate TAB* 324 MG TAB PO SCH (07:45)
[2019-11-06 07:49] VITALS: BP 115/70
[2019-11-06] MEDS: Docusate CAP* 100 MG PO SCH (08:00)
--- NOTE | 2019-11-06 12:19 | PTEDU ---
Patient Name: CIERRA MARTE CIERRA MARTE selected video: Never Ever Shake a Baby to view on 11/06/2019 at 12:17:56 PM from [id number]
--- NOTE | 2019-11-06 12:31 | PTEDU ---
Patient Name: CIERRA MARTE CIERRA MARTE selected video: BBOB: Nurturing Your Gorgeous &Growing Baby by to view on 11/06/2019 at 12:30:51 PM [id number]
== END 2019-11-06 16:20 | disposition home or self-care (01) | DRG 807 ==
LOC: MCHOBOUT 12:34 → MCHOB 13:22
PROVIDERS: ADMIT Advanced Practice Midwife; ATTEND Advanced Practice Midwife
PROC: 10E0XZZ Delivery of Products of Conception, External Approach (ICD-10-PCS; principal; 2019-11-04)
PROC: 0KQM0ZZ Repair Perineum Muscle, Open Approach (ICD-10-PCS; 2019-11-04)
PROC: 4A1HXCZ Monitoring of Products of Conception, Cardiac Rate, External Approach (ICD-10-PCS; 2019-11-04)
DX: O48.0 Post-term pregnancy (principal); Z37.0 Single live birth; O99.824 Streptococcus B carrier state complicating childbirth; Z3A.40 40 weeks gestation of pregnancy; O70.1 Second degree perineal laceration during delivery; O71.89 Other specified obstetric trauma; O90.81 Anemia of the puerperium
CPT/HCPCS: 36415; 80307; 85025; 86850; 86900; 86901; A9270-GY; J2540

== ENCOUNTER 2021-12-30 06:11 | Inpatient (IN) ==
[2021-12-30] MEDS ORDERED: Buffered Lidocaine 1% SYRIN 1 ml INTRADERM ONE (06:38)
[2021-12-30 06:59] LABS: Urine Appearance Cloudy; Urine Bilirubin Negative (Negative); Urine Blood 3+ (Negative); Urine Color Yellow; Urine Glucose Negative (Negative); Urine Ketones Negative (Negative); Urine Nitrite Negative (Negative); Urine Protein 1+(30 mg/dL) (Negative); Urine Specific Gravity 1.005 (1.002-1.030); Urine Urobilinogen Negative (Negative)
[2021-12-30] MEDS ORDERED: Lactated Ringers 1000 ml BAG 1,000 ML IV SCH ×2 (07:00→09:00)
[2021-12-30 07:09] LABS: Urine Bacteria Absent (Absent); Urine Red Blood Cell 3+(>10/hpf) (Absent); Urine Squamous Epithelial Cell Present (Absent); Urine White Blood Cell 1+(6-10/hpf) (Absent)
[2021-12-30] MEDS ORDERED: Oxytocin in LR 20 UNITS/1,000 ML BAG IVPB ONE (07:14)
[2021-12-30 07:16] LABS: Urine Benzodiazepine Screen None Detected (None Detect); Urine Cannabinoids Screen None Detected (None Detect); Urine Opiates Screen None Detected (None Detect)
[2021-12-30 07:26] LABS: ABS Eosinophils 0.1 10^3/ul (0-0.6); ABS Lymphocytes 1.7 10^3/ul (1.0-4.8); ABS Neutrophils 8.7 10^3/ul (1.5-7.7); Eosinophil % 0.8 %; Hematocrit 33 % (35-47); Lymphocyte % 14.4 %; Mean Corpuscular HGB Conc 34 g/dL (31-36); Mean Corpuscular Hemoglobin 32 pg (27-31); Mean Corpuscular Volume 94 fL (80-97); Mean Platelet Volume 7.9 fL (7.4-10.4); Platelet Count 158 10^3/uL (150-450); Red Blood Count 3.45 10^6 /uL (3.70-4.87); Red Cell Distribution Width 14 % (10-15); White Blood Count 11.4 10^3/uL (3.5-10.8)
[2021-12-30] MEDS ORDERED: Penicillin G Potassium IV 5,000,000 UNITS in NS 0.9% 100 ml BAG 100 ML IVPB ONE (07:30)
[2021-12-30] MEDS ORDERED: Glycerin ADULT 2.4 gm SUPP PR PRN (08:03)
[2021-12-30] MEDS ORDERED: Oxytocin in LR 20 UNITS/1,000 ML BAG IVPB SCH (09:00)
[2021-12-30] MEDS: Dibucaine 1% OINT 28.35 GM TUBE PR PRN (10:08)
[2021-12-30] MEDS: Witch Hazel PAD JAR TOPICAL PRN (10:08)
[2021-12-30] MEDS ORDERED: Lidocaine 1% VIAL 10 MG/ML VIAL ONE (15:30)
[2021-12-31 09:52] LABS: ABS Eosinophils 0.1 10^3/ul (0-0.6); ABS Lymphocytes 1.9 10^3/ul (1.0-4.8); ABS Monocytes 0.7 10^3/ul (0-0.8); ABS Neutrophils 9.3 10^3/ul (1.5-7.7); Eosinophil % 0.6 %; Hematocrit 29 % (35-47); Hemoglobin 9.7 g/dL (12.0-16.0); Lymphocyte % 15.8 %; Mean Corpuscular HGB Conc 34 g/dL (31-36); Mean Corpuscular Hemoglobin 32 pg (27-31); Mean Corpuscular Volume 95 fL (80-97); Platelet Count 156 10^3/uL (150-450); Red Blood Count 2.99 10^6 /uL (3.70-4.87); Red Cell Distribution Width 14 % (10-15); White Blood Count 12.1 10^3/uL (3.5-10.8)
[2022-01-01] MEDS: Witch Hazel PAD JAR TOPICAL PRN (03:23)
[2022-01-01] MEDS: Dibucaine 1% OINT 28.35 GM TUBE PR PRN (03:23)
[2022-01-01 07:58] VITALS: BP 101/57
== END 2022-01-01 12:20 | disposition home or self-care (01) | DRG 807 ==
LOC: MCHOBOUT 06:11 → MCHOB 06:32
PROVIDERS: ADMIT Midwife; ATTEND Midwife